=== PATIENT | male | born 1930 | race Caucasian/White ===

== ENCOUNTER → 2016-06-05 | Outpatient (CLI) | payer MEDICARE, OTHER ==
--- NOTE | 2016-06-05 18:40 | RADRPT ---
PROCEDURE: XR Left Hip and pelvis. CLINICAL INDICATION: Left hip pain. Pelvic pain. TECHNIQUE: Two views. Frontal pelvis and lateral left hip. COMPARISON: 11/04/2013. FINDINGS: There is no fracture or dislocation. The soft tissues are normal. The articular surfaces are intact. There are degenerative changes of both hips with osteophytes and joint space narrowing. Right is worse than left. There are degenerative changes of the lower lumba r spine. There is no lytic or blastic lesion. There is no radiopaque foreign body. IMPRESSION: 1. 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 2. Degenerative changes of the lower lumbar spine. 3. No change from 11/04/2013. RPTAT: QQ .Dionisio Fermin MD, MD Date Time Electronically viewed and signed by .Dionisio Fermin MD, on 06/05/2016 18:40 .R/
--- NOTE | 2016-06-25 04:30 | HKNOTE ---
DATE OF SERVICE: 06/05/2016 MAIN COMPLAINT: Pain in the left hip. HISTORY OF MAIN COMPLAINT: The patient is an 85-year-old male who complains of pain in his left hip . He has had the pain for about 2 weeks. There has been no recent history of injury. He saw Dr. Weeks 3 years ago concerning his right hip. Dr. Weeks told him he needed a hip replace ment, but he declined. He opted instead requesting physical therapy and he states "no problems now. " The patient had sciatica in 2009 which resolved on Lyrica. He limps some of the time. He does not have a shoe lift. The patient plays 18 holes of golf every . PRESENT COMPLAINTS: The pain in the left hip is localized to the buttocks. Pain radiates down the back of the left thigh to just above the knee. Pain varies between mild to moderate and is not aggr avated by walking, weightbearing or stair climbing. On a level surface, he can walk up to a half a mile without stopping. PAST ORTHOPEDIC HISTORY: Previous orthopedic operations knee replacement by Dr. Burgess in 2001. PRIOR CORTISONE INTAKE: Once into the knee. ALCOHOL INTAKE: None. OTHER JOINT PROBLEMS: None except fingers. BLOOD TESTS FOR ARTHRITIS: Yes ("possible rheumatoid arthritis."). PRIOR INJURIES TO HIPS OR KNEES: None. WORK STATUS: The patient is retired. PAST MEDICAL HISTORY: 1. Hypothyroid. 2. Rheumatoid arthritis. PAST SURGICAL HISTORY: 1. Left knee replacement by Dr. Burgess in 2001. 2. Shoulder surgeries . 3. Finger surgery 5 times between 2004 and 2014 for trigger fingers. DRUG ALLERGIES: 1. PENICILLIN. 2. CIPRO. 3. SULFA DRUGS. MEDICATIONS: 1. Nortriptyline 10 mg twice a day for neuropathy. 2. Levothyroxine 125 mcg daily for thyroid. 3. 10 mg once a day for cholesterol. 4. Lisinopril 10 mg daily for hypertension. 5. Fluticasone twice a day nasal spray for allergy. 6. Trazodone 50 mg once a day for sleep. 7. Tamsulosin 0.4 mg daily for prostate. 8. Prednisone 5 mg daily for rheumatoid arthritis. FAMILY HISTORY: Father at unstated age of heart problems. Mother at unstated age of tube rculosis. SYSTEMS REVIEW: Tingling sensation in his feet due to neuropathy. Otherwise, entirely negative. HABITS: The patient drinks on social occasions. He does not smoke. MANAGER INPATIENT: Dr. Dick Calderon, [address] [place] [address]. PHYSICAL EXAMINATION: GENERAL: Rather fragile looking 86-year-old male. He walks without a walking aid. VITAL SIGNS: Height 5 feet 6 inches, weight 150 pounds, blood pressure 130/70, temperature 98.1. GAIT: The patient's gait is slightly antalgic. BACK: Dynamic pain assessment reveals a pain free range of motion in flexion, extension, lateral be nding, and rotation. Inspection of the spine reveals no list. There is @@no lumbar paraspinal muscl e spasm. The pelvis is level. Facet stress test is negative bilaterally. Palpation of the spine demo nstrates no tenderness of the spinous processes, facet joints, sacroiliac joint, sciatic notch, or p osterior thigh. NEUROLOGIC: Motor examination reveals no muscle deficit in the lower extremities. Deep tendon refle xes in the lower extremities: Right knee jerk plus, left knee jerk plus, right ankle jerk plus, lef t ankle jerk plus. Straight leg raising is negative bilaterally at 80 degrees. Examination of the left hip: A full range of motion without pain. No tenderness anywhere around th e hip. Examination of the right hip: A full range of motion without pain. No tenderness anywhere around the hip. Dictated By: MARIAMA KHAN/JERRY Conf#: [id number] DID#: [id number]
== END | disposition home or self-care (01) ==
LOC: HKI 14:52
DX: M25.552 Pain in left hip (principal); M79.652 Pain in left thigh; M54.9 Dorsalgia, unspecified; Z96.652 Presence of left artificial knee joint; Z88.2 Allergy status to sulfonamides; Z88.0 Allergy status to penicillin; Z88.3 Allergy status to other anti-infective agents
CPT/HCPCS: 73502; G0463